=== PATIENT | male | born 1945 | race Caucasian/White ===

== ENCOUNTER 2018-04-14 16:35 | Observation (INO) ==
[2018-04-14] MEDS ORDERED: Sod Chloride 0.9% Inj 1,000 ML IV.SIG ONE (16:49)
--- NOTE | 2018-04-14 17:13 | ED ---
HPI General Chief Complaint: Syncope Stated Complaint: Syncope Time Seen by Provider: 04/14/18 16:49 Source: patient Mode of arrival: EMS Limitations: no limitations History of Present Illness HPI narrative: Patient is a 73-year-old male with history of hyperthyroidism, present to the emergency room after he suffered a syncopal episode today. Patient reports that he had just finished eating dinner, reports that he was sitting his chair and when he woke up, he was on the floor. Patient reports that prior to his syncopal episode, he did feel dizzy and did feel diaphoretic, patient denied any chest pain or shortness of breath. At this time, patient reports that he feels fine, denies any dizziness, denies any vision changes, denies any headache, denies any chest pain or shortness of breath. Patient reports that he has never had an episode like this in the past, reports no history of cardiac problems. Denies any fever/chills. No other complaints at this time. Related Data Home Medications Medication Instructions Recorded Confirmed Methamizole 10 mg PO DAILY 04/14/18 Allergies Allergy/AdvReac Type Severity Reaction Status Date / Time No Known Allergies Allergy Verified 04/14/18 16:51 Review of Systems ROS: all other systems reviewed are negative PMFSH History History Provided By: Patient Medical History Medical History Hyperthyroidism (Acute) Surgical History Surgical History History of appendectomy (Acute) History of knee replacement (Acute) History of partial colectomy (Acute) Social History Social History Substance History: No History of Abuse Smoking Status: Former smoker How Often Do You Have a Drink Containing Alcohol: Monthly or less Recent Travel in [facility] within the Last 8 Weeks: No Recent Out of Country Travel within the Last 8 Weeks: No Exam Narrative Exam Narrative: GENERAL: NAD SKIN: Focused skin assessment warm/dry. HEAD: Atraumatic. Normocephalic. EYES: Pupils equal and round. No scleral icterus. No injection or drainage. ENT: No nasal bleeding or discharge. Mucous membranes pink and moist. NECK: Trachea midline. No JVD. CARDIOVASCULAR: Regular rate and rhythm. No murmur appreciated. RESPIRATORY: No accessory muscle use. Clear to auscultation. Breath sounds equal bilaterally. GASTROINTESTINAL: Abdomen soft, non-tender, nondistended. Hepatic and splenic margins not palpable. MUSCULOSKELETAL: No obvious deformities. No clubbing. No cyanosis. No edema. NEUROLOGICAL: Awake and alert. No obvious cranial nerve deficits. Motor grossly within normal limits. Normal speech. PSYCHIATRIC: Appropriate mood and affect; insight and judgment normal. Course Initial Documented Vital Signs Temperature 98.6 F 04/14/18 16:42 Pulse Rate 68 04/14/18 16:42 Respiratory Rate 22 04/14/18 16:42 Blood Pressure 160/70 H 04/14/18 16:42 Pulse Oximetry 100 04/14/18 16:42 Last Documented Vital Signs Temperature 98.6 F 04/14/18 16:42 Pulse Rate 67 04/14/18 17:08 Respiratory Rate 22 04/14/18 16:42 Blood Pressure 160/70 H 04/14/18 16:42 Pulse Oximetry 96 04/14/18 17:10 Medical Decision Making MDM Narrative Medical decision making narrative: During the course of the patients emergency department visit, the patients history, examination, and differential diagnosis were reviewed with the patient. The patient was placed on a peoplesoft taleo manager with oximetry and frequent blood pressure monitoring. The patient had an IV access obtained and blood work sent for analysis. An EKG is obtained, does not show acute ST-T wave changes. A syncope workup was initiated. The patients laboratory studies were reviewed and remarkable for: wbc 6.6, hgb 13.1, hct 38.6, platelet 278 inr 1.1 sodium 143, potassium 3.6, bun 14, creatinine 1.29, glucose 158 trop less than 0.02 Radiology studies were reviewed and remarkable for: chest xray: no evidence of acute cardiopulmonary disease patient with syncopal episode today - patient agreeable to observation overnight case reviewed with Dr. Ordonez who accepts pt to service Medical Screen Exam Complete: Yes Emergency Medical Condition: Yes Differential Diagnosis Differential Diagnosis: Syncopal episode could be from electrolyte abnormality versus TIA versus CVA versus cardiac arrhythmia versus ACS Medical Records Medical records reviewed: Yes I reviewed the patient's medical records. Lab Data Lab results reviewed: Yes I reviewed the patient's lab results. Result diagrams: 04/14/18 17:00 04/14/18 17:00 Lab Results 1104/14/18 04/14/18 Range/Units 17:00 17:00 17:00 WBC 6.6 (4.0-11.0) th/mm3 RBC 4.23 L (4.50-5.90) mil/mm3 Hgb 13.1 (13.0-17.0) gm/dL Hct 38.6 L (39.0-51.0) % MCV 91.3 (80.0-100.0) fL MCH 31.0 (27.0-34.0) pg MCHC 34.0 (32.0-36.0) % RDW 14.7 (11.6-17.2) % Plt Count 278 (150-450) th/mm3 MPV 8.8 (7.0-11.0) fL Neut % (Auto) 69.2 (16.0-70.0) % Lymph % (Auto) 19.9 (9.0-44.0) % Bond % (Auto) 6.6 (0.0-8.0) % Eos % (Auto) 3.1 (0.0-4.0) % Baso % (Auto) 1.2 (0.0-2.0) % Neut # (Auto) 4.5 (1.8-7.7) th/mm3 Lymph # (Auto) 1.3 (1.0-4.8) th/mm3 Bond # (Auto) 0.4 (0.0-0.9) th/mm3 Eos # (Auto) 0.2 (0.0-0.4) th/mm3 Baso # (Auto) 0.1 (0.0-0.2) th/mm3 WBC Differential . Differential Comment Auto diff final PT 10.7 (9.8-11.6) sec INR 1.1 Ratio APTT 21.3 L (23.4-31.7) sec Sodium 143 (136-145) meq/L Potassium 3.6 (3.5-5.1) meq/L Chloride 110 H (98-107) meq/L Carbon Dioxide 24.8 (21.0-32.0) meq/L Anion Gap 8 (5-15) meq/L BUN 14 (7-18) mg/dL Creatinine 1.29 (0.60-1.30) mg/dL Estimated GFR 54 L (>89) mL/min Random Glucose 158 H (74-106) mg/dL Calcium 7.5 L (8.5-10.1) mg/dL Total Bilirubin 0.3 (0.2-1.0) mg/dL AST 15 (15-37) U/L ALT 14 (12-78) U/L Alkaline Phosphatase 66 (45-117) U/L Troponin I Less than 0.02 L (0.02-0.05) ng/mL B-Natriuretic Peptide (0-100) pg/mL Total Protein 5.7 L (6.4-8.2) g/dL Albumin 3.0 L (3.4-5.0) g/dL 04/14/18 Range/Units 17:00 WBC (4.0-11.0) th/mm3 RBC (4.50-5.90) mil/mm3 Hgb (13.0-17.0) gm/dL Hct (39.0-51.0) % MCV (80.0-100.0) fL MCH (27.0-34.0) pg MCHC (32.0-36.0) % RDW (11.6-17.2) % Plt Count (150-450) th/mm3 MPV (7.0-11.0) fL Neut % (Auto) (16.0-70.0) % Lymph % (Auto) (9.0-44.0) % Bond % (Auto) (0.0-8.0) % Eos % (Auto) (0.0-4.0) % Baso % (Auto) (0.0-2.0) % Neut # (Auto) (1.8-7.7) th/mm3 Lymph # (Auto) (1.0-4.8) th/mm3 Bond # (Auto) (0.0-0.9) th/mm3 Eos # (Auto) (0.0-0.4) th/mm3 Baso # (Auto) (0.0-0.2) th/mm3 WBC Differential Differential Comment PT (9.8-11.6) sec INR Ratio APTT (23.4-31.7) sec Sodium (136-145) meq/L Potassium (3.5-5.1) meq/L Chloride (98-107) meq/L Carbon Dioxide (21.0-32.0) meq/L Anion Gap (5-15) meq/L BUN (7-18) mg/dL Creatinine (0.60-1.30) mg/dL Estimated GFR (>89) mL/min Random Glucose (74-106) mg/dL Calcium (8.5-10.1) mg/dL Total Bilirubin (0.2-1.0) mg/dL AST (15-37) U/L ALT (12-78) U/L Alkaline Phosphatase (45-117) U/L Troponin I (0.02-0.05) ng/mL B-Natriuretic Peptide 39 (0-100) pg/mL Total Protein (6.4-8.2) g/dL Albumin (3.4-5.0) g/dL Imaging Data Attestation: I personally reviewed and interpreted this imaging study as follows : Radiologist's impression: Chest X-Ray 04/14/18 16:49 CONCLUSION: No evidence of acute cardiopulmonary disease. Head CT 04/14/18 16:49 CONCLUSION: No acute intracranial abnormality demonstrated. . ECG Data EKG Prior to Arrival: Yes Attestation: I personally reviewed and interpreted this ECG as follows: Prior ECG tracings: not available for review Interpretation: EKG at 1641 shows normal sinus rhythm at 60 bpm, qt/qtc: 408/ 408. there are no acute st or t wave changes Discharge Plan Discharge Disposition Patient Disposition: 30 Still Patient Discharge Condition Condition: Fair Discharge Details Diagnosis: Syncope and collapse Physicians Team ED Provider: Ingrid Mendiola Primary Care Provider: UNKNOWN, Rxs /Orders / Referrals /Forms Prescriptions: No Action Methamizole 10 mg PO DAILY RF: 0 Status ED Status: Admitted Observation Patient
--- NOTE | 2018-04-14 17:17 | XR ---
EXAM DATE: 04/14/2018 5:13 PM EST AGE/SEX: 73 years / Male INDICATIONS: Syncope. Passed out after eating. CLINICAL DATA: This is the patient's initial encounter. Patient reports that signs and symptoms have been present for 1 day and indicates a pain score of 0/10. MEDICAL/SURGICAL HISTORY: None. None. COMPARISON: No prior exams available for comparison. FINDINGS: A single AP view of the chest demonstrates the lungs to be symmetrically aerated without evidence of mass, infiltrate or effusion. The cardiomediastinal contours are unremarkable. Osseous structures a re intact. CONCLUSION: No evidence of acute cardiopulmonary disease. Electronically signed by: Silver Macias MD 04/14/2018 5:16 PM EST
[2018-04-14 17:25] LABS: Baso # (Auto) 0.1 th/mm3 (0.0-0.2); Baso % (Auto) 1.2 % (0.0-2.0); Eos # (Auto) 0.2 th/mm3 (0.0-0.4); Eos % (Auto) 3.1 % (0.0-4.0); Hematocrit 38.6 % (39.0-51.0); Hemoglobin 13.1 gm/dL (13.0-17.0); Lymph # (Auto) 1.3 th/mm3 (1.0-4.8); Lymph % (Auto) 19.9 % (9.0-44.0); Mean Corpuscular Volume 91.3 fL (80.0-100.0); Mean Platelet Volume 8.8 fL (7.0-11.0); Mono # (Auto) 0.4 th/mm3 (0.0-0.9); Mono % (Auto) 6.6 % (0.0-8.0); Neut # (Auto) 4.5 th/mm3 (1.8-7.7); Neut % (Auto) 69.2 % (16.0-70.0); Platelet Count 278 th/mm3 (150-450); Red Blood Count 4.23 mil/mm3 (4.50-5.90); Red Cell Distribution Width 14.7 % (11.6-17.2); White Blood Count 6.6 th/mm3 (4.0-11.0)
[2018-04-14 17:34] LABS: Activated Partial Thrombo Time 21.3 sec (23.4-31.7); INR 1.1 Ratio; Prothrombin Time 10.7 sec (9.8-11.6)
[2018-04-14 17:40] LABS: Anion Gap 8 meq/L (5-15); Blood Urea Nitrogen 14 mg/dL (7-18); Calcium 7.5 mg/dL (8.5-10.1); Carbon Dioxide 24.8 meq/L (21.0-32.0); Chloride 110 meq/L (98-107); Glomerular Filtration Rate 54 mL/min (>89); Glucose,Random 158 mg/dL (74-106); Potassium 3.6 meq/L (3.5-5.1); Sodium 143 meq/L (136-145)
[2018-04-14 17:41] LABS: Aspartate Aminotransferase 15 U/L (15-37)
[2018-04-14 17:45] LABS: Alanine Aminotransferase 14 U/L (12-78); Alkaline Phosphatase 66 U/L (45-117); Total Protein 5.7 g/dL (6.4-8.2)
--- NOTE | 2018-04-14 18:34 | CT ---
EXAM DATE: 04/14/2018 6:22 PM EST AGE/SEX: 73 years / Male INDICATIONS: Syncope today. CLINICAL DATA: This is the patient's initial encounter. Patient reports that signs and symptoms have been present for 1 day and indicates a pain score of 5/10. MEDICAL/SURGICAL HISTORY: Hypertension. Appendectomy. RADIATION DOSE: 56.35 CTDI (mGy) COMPARISON: No prior exams available for comparison. TECHNIQUE: CT of the head without contrast. Using automated exposure control and adjustment of the mA and/or kV according to patient size, radiation dose was kept as low as reasonably achievable to ob tain optimal diagnostic quality images. DICOM format image data is available electronically for revi ew and comparison. FINDINGS: Cerebrum: The ventricles are normal for age. No evidence of midline shift, mass lesion, hemorrhage or acute infarction. No extraaxial fluid collections are seen. Posterior Fossa: The cerebellum and brainstem are intact. The 4th ventricle is midline. The cerebe llopontine angle is unremarkable. Extracranial: The visualized portion of the orbits is intact. Skull: The calvaria is intact. No evidence of skull fracture. CONCLUSION: No acute intracranial abnormality demonstrated. . Electronically signed by: Silver Macias MD 04/14/2018 6:33 PM EST
[2018-04-14] MEDS ORDERED: Bisacodyl 10 MG Supp RECTAL PRN (18:40)
[2018-04-14] MEDS ORDERED: Acetaminophen 325 MG Tablet PO PRN (18:40)
--- NOTE | 2018-04-14 20:11 | P.HP ---
History of Present Illness Service: [facility] Primary Care Physician: UNKNOWN History of Present Illness: 73-year-old male with a past medical history significant for hyperthyroidism on methamizole presents to the emergency department for evaluation of a syncopal episode. The patient reports he was sitting at the table and had just finished Thanksgiving dinner when he began to feel warm dizzy and lightheaded. He reports he fell off the chair and slumped to the floor. He denies any head trauma or other injuries and he reports he remained on the floor until EMS came. The patient states he has had 2 months of headaches, generalized weakness and is concerned about his thyroid function. He denies any heart palpitations. No chest pain or shortness of breath. No abdominal pain. No nausea/vomiting/diarrhea. No focal neurologic deficits. No fever/chills. Review of Systems All other systems reviewed negative except as stated [facility] - History History Provided By: Patient - Medical History Medical History: Medical History (Last Reviewed 04/14/18 @ 20:08 by Ingrid Cooney MD) Hyperthyroidism - Surgical History Surgical History: Surgical History (Last Reviewed 04/14/18 @ 20:08 by Ingrid Cooney MD) History of appendectomy History of knee replacement History of partial colectomy - Family History Family History: Family History (Last Updated 04/14/18 @ 20:08 by Ingrid Cooney MD) Other Family history normal - Tobacco History Smoking Status: Former smoker - Alcohol History How Often Do You Have a Drink Containing Alcohol: Monthly or less - Substance Use History Substance History: No History of Abuse - Travel History Recent Travel in the [place] Within the Last 8 Weeks: No Recent Travel Out of the Country Within the Last 8 Weeks: No - Immunization History Tetanus Immunization: Unsure Medications and Allergies Active Medications: Active Medications Acetaminophen (Tylenol) 650 mg PO Q4H PRN PRN Reason: Headache, fever, pain 1-4 Al Hydroxide/Mg Hydroxide (Milk Of Magnesia Liq) 30 ml PO Q12H PRN PRN Reason: Mild Constipation Bisacodyl (Dulcolax Supp) 10 mg RECTAL DAILY PRN PRN Reason: SEVERE CONSITIPATION Sodium Chloride (Ns Inj) 1,000 mls @ 100 mls/hr IV.CONT .Q10H JLUIS Stop: 04/16/18 18:44 Lactulose (Lactulose Liq) 30 ml PO DAILY PRN PRN Reason: SEVERE CONSITIPATION Ondansetron HCl (Zofran Inj) 4 mg IV.PUSH Q6H PRN PRN Reason: NAUSEA OR VOMITING Sennosides (Senokot) 17.2 mg PO Q12H PRN PRN Reason: Moderate Constipation Allergies Allergy/AdvReac Type Severity Reaction Status Date / Time No Known Allergies Allergy Verified 04/14/18 16:51 Home Medications Medication Instructions Recorded Confirmed Type Methamizole 10 mg PO DAILY 04/14/18 History Exam Vital signs: Vital Signs 04/14/18 16:42 04/14/18 17:08 04/14/18 17:10 Temperature 98.6 F Pulse Rate 68 67 Respiratory Rate 22 Blood Pressure 160/70 H Pulse Oximetry 100 96 04/14/18 19:15 Temperature Pulse Rate 63 Respiratory Rate 17 Blood Pressure 143/65 H Pulse Oximetry 97 Intake & Output 04/14/18 04/14/18 04/15/18 06:59 18:59 06:59 Intake Total 1000 / 1000 Balance 1000 / 1000 Weight 72.575 kg Intake: IV 1000 / 1000 NS Inj 1,000 ML @ Wide Open IV. 1000 / 1000 SIG BOLUS ONE Rx#:[id number] Narrative: Gen.: No acute distress Head: Normocephalic. Atraumatic. EENT: Pupils equal round and reactive to light. Nose without drainage. Airway intact. Throat without injection. Cardiovascular: Regular rate and rhythm. No murmurs, rubs or gallops. Respiratory: Lungs clear to auscultation bilaterally. No wheezes or rhonchi. Abdomen: Soft, nontender, nondistended. No peritoneal signs. Musculoskeletal: No gross deformities. No edema. Skin: No obvious rashes or erythema. Neuro: Sensory and motor grossly intact. Cranial nerves II through XII grossly intact. Results - Labs CBC & Chem 7: 04/14/18 17:00 04/14/18 17:00 Labs: Laboratory Results - last 24 hr 04/14/18 04/14/18 04/14/18 17:00 17:00 17:00 WBC 6.6 RBC 4.23 L Hgb 13.1 Hct 38.6 L MCV 91.3 MCH 31.0 MCHC 34.0 RDW 14.7 Plt Count 278 MPV 8.8 Neut % (Auto) 69.2 Lymph % (Auto) 19.9 [place] % (Auto) 6.6 Eos % (Auto) 3.1 Baso % (Auto) 1.2 Neut # (Auto) 4.5 Lymph # (Auto) 1.3 [place] # (Auto) 0.4 Eos # (Auto) 0.2 Baso # (Auto) 0.1 WBC Differential . Differential Comment Auto diff final PT 10.7 INR 1.1 APTT 21.3 L Sodium 143 Potassium 3.6 Chloride 110 H Carbon Dioxide 24.8 Anion Gap 8 BUN 14 Creatinine 1.29 Estimated GFR 54 L Random Glucose 158 H Calcium 7.5 L Total Bilirubin 0.3 AST 15 ALT 14 Alkaline Phosphatase 66 Troponin I Less than 0.02 L B-Natriuretic Peptide Total Protein 5.7 L Albumin 3.0 L 04/14/18 17:00 WBC RBC Hgb Hct MCV MCH MCHC RDW Plt Count MPV Neut % (Auto) Lymph % (Auto) [place] % (Auto) Eos % (Auto) Baso % (Auto) Neut # (Auto) Lymph # (Auto) [place] # (Auto) Eos # (Auto) Baso # (Auto) WBC Differential Differential Comment PT INR APTT Sodium Potassium Chloride Carbon Dioxide Anion Gap BUN Creatinine Estimated GFR Random Glucose Calcium Total Bilirubin AST ALT Alkaline Phosphatase Troponin I B-Natriuretic Peptide 39 Total Protein Albumin - Imaging Impressions Chest X-Ray 04/14/18 16:49 CONCLUSION: No evidence of acute cardiopulmonary disease. Head CT 04/14/18 16:49 CONCLUSION: No acute intracranial abnormality demonstrated. . Caprini VTE Risk Assessment Caprini VTE Risk Assessment: Moderate/High Risk (score >= 2) Caprini Risk Assessment Model: Point Value = 1 Point Value = 2 Point Value = 3 Point Value = 5 Age 41-60 Minor surgery BMI > 25 kg/m2 Swollen legs Varicose veins or History of unexplained or recurrent spontaneous Oral contraceptives or hormone replacement Sepsis (< 1 month) Serious lung disease, including pneumonia (< 1 month) Abnormal pulmonary function Acute myocardial infarction Congestive heart failure (< 1 month) History of inflammatory bowel disease Medical patient at bed rest Age 61-74 Arthroscopic surgery Major open surgery (> 45 min) Laparoscopic surgery (> 45 min) Malignancy Confined to bed (> 72 hours) Immobilizing plaster cast Central venous access Age >= 75 History of VTE Family history of VTE Factor V Leiden Prothrombin [id number] Lupus anticoagulant Anticardiolipin antibodies Elevated serum homocysteine Heparin-induced thrombocytopenia Other congenital or acquired thrombophilia Stroke (< 1 month) Elective arthroplasty Hip, pelvis, or leg fracture Acute spinal cord injury (< 1 month) Prophylaxis Regimen: Total Risk Factor Score Risk Level Prophylaxis Regimen 0-1 Low Early ambulation 2 Moderate Order ONE of the following: *Sequential Compression Device (SCD) *Heparin 5000 units SQ BID 3-4 Higher Order ONE of the following medications: *Heparin 5000 units SQ TID *Enoxaparin/Lovenox 40 mg SQ daily (WT < 150 kg, CrCl > 30 mL/min) *Enoxaparin/Lovenox 30 mg SQ daily (WT < 150 kg, CrCl > 10-29 mL/min) *Enoxaparin/Lovenox 30 mg SQ BID (WT < 150 kg, CrCl > 30 mL/min) AND/OR *Sequential Compression Device (SCD) 5 or more Highest Order ONE of the following medications: *Heparin 5000 units SQ TID (Preferred with Epidurals) *Enoxaparin/Lovenox 40 mg SQ daily (WT < 150 kg, CrCl > 30 mL/min) *Enoxaparin/Lovenox 30 mg SQ daily (WT < 150 kg, CrCl > 10-29 mL/min) *Enoxaparin/Lovenox 30 mg SQ BID (WT < 150 kg, CrCl > 30 mL/min) AND *Sequential Compression Device (SCD) Assessment and Plan - Plan Assessment/plan: 1. Syncope Head CT negative for acute process Echo/carotid ultrasound pending 2. Hyperthyroidism Thyroid studies pending Continue home methamizole FEN Cardiac diet Electrolytes: Monitor and replete as needed Heparin
[2018-04-14] MEDS: Sod Chloride 0.9% Inj 1,000 ML IV.CONT SCH (20:48)
[2018-04-14] MEDS: Heparin - SQ 10,000 UNITS/ML Vial SQ SCH (20:51)
[2018-04-14 22:06] LABS: Free T4 (Free Thyroxine) 0.98 ng/dL (0.76-1.46); Thyroid Stimulating Hormone 10.4 uIU/mL (0.358-3.740); Triiodothyronine (T3) Free 2.86 pg/mL (2.18-3.98)
[2018-04-15] MEDS: Sod Chloride 0.9% Inj 1,000 ML IV.CONT SCH ×2 (05:11→15:43)
[2018-04-15] MEDS: Heparin - SQ 10,000 UNITS/ML Vial SQ SCH (08:28)
--- NOTE | 2018-04-15 12:44 | P.PNIM ---
Subjective Interval history: no new complaints. patient reports feeling well this morning. Interval hx: telemetry strip noted from this morning about 10:19am, had a brief episode of A.fib w RVR 141 b/min. patient did not have any symptoms at the time. Physical Exam Vital signs: Last Vital Signs Temp 98.5 F 04/15/18 11:09 Pulse 67 04/15/18 11:09 Resp 20 04/15/18 11:09 BP 133/64 04/15/18 11:09 Pulse Ox 96 04/15/18 11:09 Intake & Output 04/13/18 04/14/18 04/15/18 04/16/18 06:59 06:59 06:59 06:59 Intake Total 1999 950 / 950 Balance 1999 950 / 950 Weight 72.575 kg 71.214 kg Narrative: Gen.: No acute distress HEENT:not pale,anicteric.COOPER NECK:no JVD Cardiovascular: Regular rate and rhythm. No murmurs, rubs or gallops. Respiratory: Lungs clear to auscultation bilaterally. No wheezes or rhonchi. Abdomen: Soft, nontender, nondistended. No peritoneal signs. Musculoskeletal: No gross deformities. No edema. Skin: No obvious rashes or erythema. Neuro: Sensory and motor grossly intact. Cranial nerves II through XII grossly intact. Results Labs CBC & Chem 7: 04/14/18 17:00 04/14/18 17:00 Imaging Imaging: Impressions Chest X-Ray 04/14/18 16:49 CONCLUSION: No evidence of acute cardiopulmonary disease. Head CT 04/14/18 16:49 CONCLUSION: No acute intracranial abnormality demonstrated. . Assessment and Plan Plan 73 yo M with h/o hyperthyroidism on Methimazole, presented after a syncope episode which occurred after having his thanks giving meal yesterday afternoon. Reports feeling woozy prior to briefly passing out. Syncope: likely related to Arrhythmia. Patient may be experiencing paroxysmal atrial fibrillation episodes one of which was noted on telemetry this morning. He is currently in NSR in 70's. [id number] score of 2 presently. His TSH is slightly elevated but free T3/t4 are normal. 2D ECHO --reported this afternoon--EF 50-55%,The right atrial size is mildly dilated. Trace mitral valve regurgitation. There is mild to moderate tricuspid valve regurgitation. The estimated pulmonary arterial pressure is 44mmHg. Mild pulmonary valve regurgitation. There is less than 50% respiratory change in dimension of the inferior vena cava (abnormal) Started on Metoprolol 12.5mg bid, d/w patient regarding risk of stroke and need for anticoagulation to mitigate risk for risk,he says he will discuss with his PCP at [place] prior to starting. He will make appointment with his PCP on Wednesday 04/18. He will request a cardiology referral from his PCP. Patient has maintained NSR after the single A fib episode this morning. He is clinically stable for dc. Progress Note: Quality VTE Deep Vein Thrombosis/Pulmonary Embolism Present on Admission: Yes
[2018-04-15] MEDS ORDERED: Metoprolol Tartrate 25 MG Tablet PO SCH (12:45)
--- NOTE | 2018-04-15 16:07 | ECHRPT ---
Indication: SYNCOPE CONCLUSIONS Normal left ventricular size. Wall thickness is normal. The left ventricular systolic function is low normal with an estimated ejection fraction in the rang e of 50- 55%. The right atrial size is mildly dilated. Trace mitral valve regurgitation. There is mild to moderate tricuspid valve regurgitation. The estimated pulmonary arterial pressure is 44mmHg. Mild pulmonary valve regurgitation. There is less than 50% respiratory change in dimension of the inferior vena cava (abnormal). BP: / HR: Rhythm: MEASUREMENTS (Male / Female) Normal Values Technical Quality: 2D ECHO LV Diastolic Diameter PLAX 5.3 cm 4.2 - 5.9 / 3.9 - 5.3 cm LV Systolic Diameter PLAX 4.3 cm IVS Diastolic Thickness 1.0 cm 0.6 - 1.0 / 0.6 - 0.9 cm LVPW Diastolic Thickness 1.0 cm 0.6 - 1.0 / 0.6 - 0.9 cm LV Relative Wall Thickness 0.4 RV Internal Dim ED PLAX 2.8 cm LVOT Diameter 2.0 cm Aortic Root Diameter 3.4 cm LA Systolic Diameter LX 2.7 cm 3.0 - 4.0 / 2.7 - 3.8 cm DOPPLER AV Peak Velocity 111.0 cm/s AV Peak Gradient 4.9 mmHg LVOT Peak Velocity 97.2 cm/s LVOT Peak Gradient 3.8 mmHg AV Area Cont Eq pk 2.8 cm Mitral E Point Velocity 68.1 cm/s Mitral A Point Velocity 78.5 cm/s Mitral E to A Ratio 0.9 LV E' Septal Velocity 6.5 cm/s Mitral E to LV E' Septal Ratio 10.4 TR Peak Velocity 267.0 cm/s TR Peak Gradient 29.0 mmHg PV Peak Velocity 109.0 cm/s PV Peak Gradient 4.8 mmHg FINDINGS LEFT VENTRICLE Normal left ventricular size. Wall thickness is normal. The left ventricular systolic function is low normal with an estimated ejection fraction in the rang e of 50- 55%. RIGHT VENTRICLE Normal right ventricular size and systolic function. LEFT ATRIUM The left atrial size is normal. RIGHT ATRIUM The right atrial size is mildly dilated. ATRIAL SEPTUM Normal atrial septal thickness without atrial level shunting by limited color doppler interrogation. AORTA The aortic root and proximal ascending aorta are normal in size on limited imaging. MITRAL VALVE Trace mitral valve regurgitation. AORTIC VALVE Trileaflet aortic valve. No aortic valve stenosis or regurgitation. TRICUSPID VALVE There is mild to moderate tricuspid valve regurgitation. The estimated pulmonary arterial pressure is 44mmHg. PULMONARY VALVE Mild pulmonary valve regurgitation. VESSELS There is less than 50% respiratory change in dimension of the inferior vena cava (abnormal). PERICARDIUM No pericardial effusion. Juan Ramon Ray MD, FACC, [facility] (Electronically Signed) Final Date:15 April 2018 16:06
--- NOTE | 2018-04-15 18:39 | ECG ---
Date Performed: 04/14/2018 Time Performed: 16:41:32 PTAGE: 73 years EKG: Sinus rhythm BORDERLINE LEFT AXIS DEVIATION MINIMAL VOLTAGE CRITERIA FOR LVH, CONSIDER NORMAL VARIANT Compared to previous tracing, voltage criteria for Left ventricular hypertrophy is new from the old tracing RASHEED LAKEISHA ECG PREVIOUS TRACING : 06/12/2014 09.25 DOCTOR: Job Patel Interpretating Date/Time 04/15/2018 18:38:30
== END 2018-04-15 18:18 | disposition home or self-care (01) ==
LOC: NEPE 16:35 → NEDA 16:35 → NEPFCDU 20:28
PROVIDERS: ADMIT Hospitalist; ATTEND Hospitalist